=== PATIENT | female | born 1965 | race Caucasian/White ===

== ENCOUNTER 2018-04-30 12:36 | Emergency (ER) | payer MEDICARE, OTHER ==
[2018-04-30 13:09] VITALS: PULSE 72; RESP 18; TEMP 98.5; O2SAT 98; BMI 35.5
[2018-04-30] MEDS ORDERED: Naproxen 550 mg Tab PO STA (13:46)
[2018-04-30] MEDS ORDERED: Naproxen 550 mg Tab PO ONE (13:52)
[2018-04-30 14:04] VITALS: BP 144/78
--- NOTE | 2018-04-30 14:10 | RAD ---
Date of service: 04/30/2018 PROCEDURE: Radiographs of the Right Shoulder HISTORY: pain COMPARISON: No prior. FINDINGS: BONES: Normal. No fracture. JOINTS: Normal. Glenohumeral and acromioclavicular joints preserved. No osteoarthritis. SOFT TISSUES: Normal. OTHER FINDINGS: None. IMPRESSION: No significant or acute findings to account for/ related to the clinical presentation.
--- NOTE | 2018-04-30 14:21 | C.PDOC ---
History Of Present Illness 53 y/o female presents to the ER complaining of right shoulder pain radiating to the upper arm for 1 + month. Pain is worse with movement and abduction. Patient states that she braced herself with her right hand when she was about to trip and fall 2 weeks ago, which increased the pain. Patient reports that she has been taking medications from the [place] for the pain in right hand without significant relief. Denies having CP, SOB, changes in sensation, headache, and neck pain. Time Seen by Provider: 04/30/18 13:05 Chief Complaint (Nursing): Upper Extremity Problem/Injury History Per: Patient History/Exam Limitations: no limitations Onset/Duration Of Symptoms: Days Current Symptoms Are (Timing): Still Present Past Medical History Reviewed: Historical Data, Nursing Documentation, Vital Signs Vital Signs: Last Vital Signs Temp 98.5 F 04/30/18 12:54 Pulse 72 04/30/18 12:54 Resp 18 04/30/18 12:54 BP 144/78 04/30/18 14:04 Pulse Ox 98 04/30/18 12:54 - Medical History PMH: No Chronic Diseases Other Surgeries: Hx of surgeries Family History: States: No Known Family Hx - Social History Hx Tobacco Use: No Hx Alcohol Use: Yes Hx Substance Use: No - Immunization History Hx Tetanus Toxoid Vaccination: No Hx Influenza Vaccination: No Hx Pneumococcal Vaccination: No Review Of Systems Except As Marked, All Systems Reviewed And Found Negative. Cardiovascular: Negative for: Chest Pain Respiratory: Negative for: Shortness of Breath Musculoskeletal: Positive for: Shoulder Pain, Arm Pain. Negative for: Neck Pain Physical Exam - Physical Exam Appears: Non-toxic, No Acute Distress Skin: Normal Color, Warm, Dry Head: Atraumatic, Normacephalic Eye(s): bilateral: Normal Inspection, EOMI Nose: Normal Oral Mucosa: Moist Neck: Normal ROM, Supple Chest: Symmetrical Cardiovascular: Rhythm Regular Respiratory: Normal Breath Sounds, No Accessory Muscle Use Extremity: No Normal ROM (FROM though exacerbates pain passed 45 degrees), Tenderness (tenderness to anterior aspect of right shoulder and medial aspect of right upper arm), Capillary Refill (< 2 seconds), No Swelling, Other (no increased warmth to right shoulder and arm,) Pulses: Left Brachial: Normal, Right Brachial: Normal, Left Radial: Normal, Right Radial: Normal Neurological/Psych: Oriented x3, Normal Speech, Normal Motor (pain with resistance ), Normal Sensation ED Course And Treatment O2 Sat by Pulse Oximetry: 98 (RA) Pulse Ox Interpretation: Normal - Other Rad X-Ray-Right Shoulder X-Ray: Viewed By Me, Read By Radiologist Interpretation: Date of service: 04/30/2018. PROCEDURE: Radiographs of the Right Shoulder. HISTORY: pain. COMPARISON: No prior. FINDINGS: BONES: Normal. No fracture. JOINTS: Normal. Glenohumeral and acromioclavicular joints preserved. No osteoarthritis. SOFT TISSUES: Normal. OTHER FINDINGS: None. IMPRESSION: No significant or acute findings to account for/ related to the clinical presentation. Progress Note: Patient treated with Naproxen PO. X-Ray- Right Shoulder was negative. Patient has been instructed on RICE. Patient has been discharged and instructed to follow up with orthopedist in 1-2 days. Disposition - Disposition Referrals: [facility] at [facility] [Outside] Calvin Stringer III, MD [Staff Provider] - Disposition: HOME/ ROUTINE Disposition Time: 14:19 Condition: STABLE Additional Instructions: Descansa y congela la edward. Rafal un seguimiento con el mdico especialista en huesos en 1-2 cantu. Regrese a la tabatha de emergencias si los sntomas persisten o empeoran. Tu presin arterial se elev hoy. Por favor, vuelva a revisar en 2-3 cantu. La presin arterial jesse no tratada puede provocar un accidente cerebrovascular, un ataque cardaco o la muerte. Prescriptions: Naproxen [Naprosyn] 1 tab PO BID PRN #20 tab PRN Reason: Pain Instructions: Tendonitis (DC) Forms: [employer]kicker (Lithuanian) Print Language: FINNISH - Clinical Impression Clinical Impression: Right shoulder pain - PA / CAMPUS INTERVIEWS INTERN / Resident Statement MD/DO has reviewed & agrees with the documentation as recorded. - Scribe Statement The provider has reviewed the documentation as recorded by the Scribe Barbara Mills Provider Attestation All medical record entries made by the Scribe were at my direction and personally dictated by me. I have reviewed the chart and agree that the record accurately reflects my personal performance of the history, physical exam, medical decision making, and the department course for this patient. I have also personally directed, reviewed, and agree with the discharge instructions and disposition.
== END 2018-04-30 14:33 | disposition home or self-care (01) ==
LOC: C.ER 12:36
DX: M25.511 Pain in right shoulder (principal)

== ENCOUNTER 2018-08-01 09:03 | Outpatient (CLI) | payer MEDICAID | END 2018-08-01 09:04 | disposition home or self-care (01) | LOC: C.VASC 09:03 | DX: M79.661 Pain in right lower leg (principal) ==

== ENCOUNTER → 2018-09-25 | Outpatient (CLI) | payer MEDICAID | LOC: C.RT 09:00 | DX: R06.02 Shortness of breath (principal) ==